=== PATIENT | female | born 1965 | race Native Hawaiian/Other Pacific Islander ===

== ENCOUNTER 2018-01-09 07:25 | Day surgery (SDC) | payer MEDICARE ==
[2018-01-09 08:01] VITALS: BMI 21.5
[2018-01-09 08:20] VITALS: O2SAT 100
--- NOTE | 2018-01-09 09:31 | CP.SDSHP ---
Same Day Surgery H & P - History Proposed Procedure: COLONSCOPY Pre-Op Diagnosis: SEE NOTES - Previous Medical/Surgical History Endocrine/Metabolic: Diabetes Misc: Other Previous Surgical History: PARTIAL COLOECTOMY - Allergies Allergies: Allergies No Known Allergies Allergy (Verified 01/09/18 08:02) - Physical Exam Vital Signs: Vital Signs 01/09/18 08:12 Temperature 97.8 F Pulse Rate 80 Respiratory 20 Rate Blood Pressure 160/68 H O2 Sat by Pulse 100 Oximetry Mental Status: Alert & Oriented x3 Neuro: WNL Heart: Other Lungs: WNL GI: Other - {Optional Preform as Required} Breast: WNL Abdomen: Other Rectal: Other Integument: WNL : WNL Ortho: WNL ENT: WNL - Impression Pt. Evaluated Today:Candidate for Anesthesia & Procedure: Yes - Date & Time Time: 09:30 Short Stay Discharge - Short Stay Discharge Admitting Diagnosis/Reason for Visit: HX OF COLON CANCER Disposition: HOME/ ROUTINE
[2018-01-09] MEDS ORDERED: Lactated Ringer's 500 ML IV SCH (09:45)
[2018-01-09] MEDS ORDERED: Lactated Ringer's 1,000 ML IV ONE (09:55)
[2018-01-09] MEDS ORDERED: Propofol 10 mg/ml Inj (20 ML) ONE (10:00)
[2018-01-09] MEDS ORDERED: Lidocaine Hydrochloride 10 ML INJ ONE (10:00)
[2018-01-09] MEDS ORDERED: Belladonna-Phenobarbital PO ONE (10:15)
[2018-01-09 11:24] VITALS: BP 120/73; PULSE 63; RESP 17; TEMP 98.4
== END 2018-01-09 11:20 | disposition home or self-care (01) ==
LOC: C.ENDO 07:25
PROVIDERS: ATTEND Specialist
DX: K64.8 Other hemorrhoids (principal); Z85.038 Personal history of other malignant neoplasm of large intestine; K58.9 Irritable bowel syndrome, unspecified; Z08 Encounter for follow-up examination after completed treatment for malignant neoplasm; E11.9 Type 2 diabetes mellitus without complications
CPT/HCPCS: 45380; 84703; 88305; J2704; J7120